=== PATIENT | female | born 1955 | race Caucasian/White ===

== ENCOUNTER 2016-10-03 02:45 | Emergency (ER) | payer MEDICAID ==
[~2016-10-03] VITALS: Ht 167.6 cm; Wt 117.9 kg
[2016-10-03 02:53] VITALS: BP 170/96
== END 2016-10-03 04:46 | disposition left against medical advice (07) ==
LOC: ER 02:51
DX: J02.9 Acute pharyngitis, unspecified (principal); K08.89 Other specified disorders of teeth and supporting structures; Z53.21 Procedure and treatment not carried out due to patient leaving prior to being seen by health care provider

== ENCOUNTER 2018-04-17 01:24 | Emergency (ER) | payer MEDICAID ==
[~2018-04-17] VITALS: Ht 167.6 cm; Wt 136.1 kg
[2018-04-17] MEDS ORDERED: cloNIDine HCL 0.1 MG TAB PO ONE (07:45)
[2018-04-17 07:55] LABS: Urine WBC None Seen /hpf (0 - 5)
[2018-04-17 08:06] LABS: Urine Bacteria NONE SEEN /hpf (None Seen); Urine Blood Negative /uL (Negative); Urine Specific Gravity 1.006 (1.001-1.035)
[2018-04-17] MEDS ORDERED: amLODIPine BESYLATE 5 MG TAB PO ONE (08:45)
[2018-04-17 09:10] VITALS: BP 152/99
== END 2018-04-17 09:11 | disposition home or self-care (01) ==
LOC: EDBD 01:24 → ER 01:29
DX: S76.012A Strain of muscle, fascia and tendon of left hip, initial encounter (principal); S76.011A Strain of muscle, fascia and tendon of right hip, initial encounter; I10 Essential (primary) hypertension; X58.XXXA Exposure to other specified factors, initial encounter; Y93.89 Activity, other specified; Y92.89 Other specified places as the place of occurrence of the external cause; Y99.8 Other external cause status
CPT/HCPCS: 73502; 81001

== ENCOUNTER 2023-11-05 01:27 | Emergency (ER) | payer MEDICAID, OTHER ==
[~2023-11-05] VITALS: Ht 162.6 cm; Wt 94.7 kg
[2023-11-05] MEDS: IOHEXOL 350 MG/ML 100ML IJ ONE (01:36)
[2023-11-05 01:40] VITALS: RESP 14
[2023-11-05 01:51] LABS: Basophils # (auto) 0 10 ^3/uL (0-0.2); Basophils % (auto) 0.2 % (0.0-2.0); Eosinophils # (auto) 0.1 10 ^3/uL (0-0.8); Eosinophils % (auto) 0.6 % (0.0-7.0); Hematocrit 48.4 % (36.0-46.0); Hemoglobin 15.8 g/dL (12.2-16.2); Lymphocytes # (auto) 3.2 10 ^3/uL (0.4-5.4); Mean Corpuscular Hemoglobin 30.9 pg (28.0-32.0); Mean Corpuscular Hgb Conc. 32.7 g/dL (32.0-36.0); Mean Corpuscular Volume 94.3 fL (80.0-100.0); Monocytes # (auto) 0.7 10 ^3/uL (0-1.3); Monocytes % (auto) 7.5 % (0.0-12.0); Neutrophils # (auto) 5.4 10 ^3/uL (1.6-8.6); Neutrophils % (auto) 57.7 % (37.0-80.0); Nucleated Red Blood Cells % 0.2 %; Red Blood Cells 5.13 10^6/uL (4.0-5.20); Red Cell Distribution Width 13.8 % (11.8-14.3); White Blood Cell 9.4 10^3/uL (4.4-10.8)
[2023-11-05 02:00] LABS: Alanine Aminotransferase 22 U/L (7-40); Albumin 4.5 g/dL (3.2-4.8); Alkaline Phosphatase 88 U/L (46-116); Anion Gap 9 (5-15); Aspartate Aminotransferase 27 U/L (13-40); BUN/Creatinine Ratio 14.9 (10.0-20.0); Blood Urea Nitrogen 11 mg/dL (9-23); Calcium 9.9 mg/dL (8.7-10.4); Carbon Dioxide 26 mmol/L (20-30); Chloride 105 mmol/L (98-107); Glucose 110 mg/dL (74-106); Potassium 3.6 mmol/L (3.5-5.1); Sodium 140 mmol/L (136-145); Total Protein 7.4 g/dL (5.7-8.2)
[2023-11-05 02:15] LABS: INR 1.01 (0.9-1.15); Partial Thromboplastin Time 29.1 SEC (24.5-34.5); Prothrombin Time 10.6 sec (9.3-11.8)
[2023-11-05] MEDS: MANNITOL 20 % (20GM/100ML) 500 ML IV ONE (02:23)
[2023-11-05] MEDS: MANNITOL 20% SOLN 100 gm/500ml 250 ML IV ONE (02:31)
[2023-11-05 02:32] VITALS: BP 146/72; RESP 13; TEMP 97.6; O2SAT 97
[2023-11-05] MEDS: levETIRAcetam 1000 mg/100ml 100 ML IV ONE (02:42)
[2023-11-05 02:44] VITALS: PULSE 89
[2023-11-05] MEDS ORDERED: levETIRAcetam 1000 mg/100ml 100 ML IV ONE (02:45)
== END 2023-11-05 03:00 | disposition short-term general hospital (02) ==
LOC: ER 01:27
DX: I62.9 Nontraumatic intracranial hemorrhage, unspecified (principal); I10 Essential (primary) hypertension
CPT/HCPCS: 36415; 70450; 71045; 80053; 84484; 85025; 85610; 85730; 93005; 96365; 96368; 99285; J1953; Q9967

== ENCOUNTER 2024-08-07 22:10 | Emergency (ER) | payer OTHER ==
[~2024-08-07] VITALS: Ht 162.6 cm; Wt 81.7 kg
--- NOTE | 2024-08-07 22:44 | ED.PDOC ---
History of Present Illness HPI Comments A 69 year old female brought in by EMS with son present, presents to the ED with a chief complaint of generalized weakness onset today. Per son, patient had an EGD done at [facility] today around 09:00. Once patient arrived home, she began experiencing generalized weakness, son took patient's BP and it was 70/40, noticed blood in phlegm and was told to go to ED if that occurred. Upon EMS arrival, BP was 103/56. Past medical history of HTN, CVA. Denies chest pain, shortness of breath, nausea, vomiting, diarrhea. No other symptoms or modifying factors present at this time. Time Seen by MD: 22:32 Reviewed Notes: Medications, Allergies Allergies: Coded Allergies: NO KNOWN ALLERGIES (Unverified , 10/03/16) Home Meds Active Scripts Sucralfate (CARAFATE) 1 Gm Tab, 1 GM OR Q6HR for 5 Days, #20 TAB Prov:CAMMY GUTHRIE MD 08/08/24 Pantoprazole Sodium Sesquihydr (Protonix) 40 Mg Tab, 40 MG PO DAILY for 5 Days, #5 TAB Prov:CAMMY GUTHRIE MD 08/08/24 Information Source: Patient, Relative (Child), Emergency Med Personnel Mode of Arrival: EMS Severity: Moderate Vital Signs Vital Signs Date Time Temp Pulse Resp B/P (MAP) Pulse Ox O2 Delivery O2 Flow Rate FiO2 08/08/24 00:00 99 16 120/75 (90) 97 08/07/24 22:50 98.3 98.3 08/07/24 22:50 Room Air* 0 21 Physical Exam General: Awake, alert and oriented. No acute distress. Skin: Skin in warm, dry and intact. Appropriate color for ethnicity. Nailbeds pink with no cyanosis. HEENT: The head is normocephalic and atraumatic. Conjunctivae are clear without exudates or hemorrhage. Sclera is non-icteric. EOM are intact. No signs of nystagmus. Eyelids are normal in appearance without swelling or lesions. Oral mucosa is pink and moist Neck: The neck is supple with normal range of motion. No JVD. Cardiac: Heart rate and rhythm are normal. No murmurs, gallops, or rubs are auscultated. Respiratory: No signs of respiratory distress. Lung sounds are clear in all lobes bilaterally without rales, ronchi, or wheezes. Abdominal: Abdomen is soft, non-tender without distention. Bowel sounds are present and normoactive in all four quadrants. Extremities: Upper and lower extremities are atraumatic in appearance without deformity or edema. Neurological: The patient is awake, alert and oriented to person, place, and time with normal speech. Speech is clear. There is no facial asymmetry. Psychiatric: Appropriate mood and affect. Good judgement and insight. No visual or auditory hallucinations. Review of Systems: REVIEW OF SYSTEMS: No fever, no chills, or fatigue HEENT: No sore throat, no earache, no congestion, no neck pain. Cardiac: No chest pain. No palpitations. Lungs: No shortness of breath, no cough. No hemoptysis GI: No nausea, upon vomiting, no diarrhea, no constipation, no abdominal pain. No blood in the stool. Positive hematemesis : No dysuria, frequency, or urgency. No hematuria. Musculoskeletal: No joint pain , no joint swelling, no extremity edema. Skin: No rash, no itching. Neuro: No headache, no dizziness, no weakness Past Medical History PAST MEDICAL HISTORY: CVA, HTN PETROLEUM SUPPLY SPECIALIST History: Denies all PETROLEUM SUPPLY SPECIALIST Hx Family History Family History: Unknown Social History Smoker: Non-Smoker Alcohol: Denies ETOH Use Drugs: Denies Drug Use Lives In: Home Was a procedure done? Was a procedure done?: No Differential Dx Considerations may include: Peptic ulcer disease, esophageal varices,Weiss's esophagus, cancer, diverticular disease, esophageal rupture/perforation, Yumiko-Henriquez tear X-Ray, Labs, Meds, VS Vital Signs Date Time Temp Pulse Resp B/P (MAP) Pulse Ox O2 Delivery O2 Flow Rate FiO2 08/08/24 00:00 99 16 120/75 (90) 97 08/07/24 22:50 98.3 120 16 87/53 (64) 96 98.3 08/07/24 22:50 120 16 96 Room Air* 0 21 08/07/24 22:34 98.1 117 14 103/56 (72) 95 Lab Test 08/08/24 00:50 08/07/24 22:50 Range/Units Sodium Level 149 H 147 H 136-145 mmol/L Potassium Level 3.6 3.8 3.5-5.1 mmol/L Chloride Level 117 H 112 H 98-107 mmol/L Carbon Dioxide Level 24 27 20-31 mmol/L Anion Gap 8 8 5-15 Blood Urea Nitrogen 46 H 49 H 9-23 mg/dL Creatinine 0.55 0.69 0.550-1.02 mg/dL Glomerular Filtration Rate Calc 98 93 >90 mL/min BUN/Creatinine Ratio 83.6 H 71.0 H 10.0-20.0 Serum Glucose 94 101 74-106 mg/dL Calcium Level 7.8 L 9.1 8.7-10.4 mg/dL White Blood Count 9.4 4.4-10.8 10^3/uL Red Blood Count 3.23 L 4.0-5.20 10^6/uL Hemoglobin 10.6 L 12.2-16.2 g/dL Hematocrit 31.3 L 36.0-46.0 % Mean Corpuscular Volume 96.9 80.0-100.0 fL Mean Corpuscular Hemoglobin 32.6 H 28.0-32.0 pg Mean Corpuscular Hemoglobin Concent 33.7 32.0-36.0 g/dL Red Cell Distribution Width 13.4 11.8-14.3 % Platelet Count 237 140-450 10^3/uL Mean Platelet Volume 8.1 6.9-10.8 fL Neutrophils (%) (Auto) 69.7 37.0-80.0 % Lymphocytes (%) (Auto) 23.5 10.0-50.0 % Monocytes (%) (Auto) 6.2 0.0-12.0 % Eosinophils (%) (Auto) 0.4 0.0-7.0 % Basophils (%) (Auto) 0.2 0.0-2.0 % Neutrophils # (Auto) 6.6 1.6-8.6 10 ^3/uL Lymphocytes # (Auto) 2.2 0.4-5.4 10 ^3/uL Monocytes # (Auto) 0.6 0-1.3 10 ^3/uL Eosinophils # (Auto) 0 0-0.8 10 ^3/uL Basophils # (Auto) 0 0-0.2 10 ^3/uL Nucleated Red Blood Cells 0.0 % Prothrombin Time 11.6 9.3-11.8 sec Prothrombin Time INR 1.10 0.9-1.15 Activated Partial Thromboplast Time 22.8 L 24.5-34.5 SEC Total Bilirubin 0.5 0.2-1.0 mg/dL Aspartate Amino Transferase (AST) 15 13-40 U/L Alanine Aminotransferase (ALT) 17 7-40 U/L Alkaline Phosphatase 64 46-116 U/L Total Protein 5.6 L 5.7-8.2 g/dL Albumin 3.6 3.2-4.8 g/dL Current Medications Medications (Trade) Dose Ordered Sig/Swapnil Route Start Time Stop Time Status Last Admin Sodium Chloride 1,000 ml @ 1,000 mls/hr Q1H ONCE IV 08/07/24 23:45 08/08/24 00:44 DC 08/07/24 23:40 [place] [address] Ph: [phone] DIAGNOSTIC IMAGING Diagnostic Imaging Report : [id number] Signed PATIENT: RICHARDSON RAM ACCT: [id number] UNIT: [id number] : 1955 LOC: ER ROOM / BED: / AGE / SEX: 69 / F ADM STATUS: REG ER SERVICE 35 ORDERING PHYSICIAN: CAMMY GUTHRIE MD PROCEDURE(s): ABPL - CT AB PEL WO CON-NO ORAL OR IV REASON: Hematemesis ORDER NUMBER(s): [id number], ACCESSION NUMBER(s): [id number] Exam: CT CT AB PEL WO CON-NO ORAL OR IV History: Hematemesis Comparison Study: None Technique: Multidetector spiral CT of the abdomen was performed from lung bases to pubic symphysis. Imaging was performed without IV contrast. Axial, coronal and sagittal multiplanar reformats were obtained from the axial data set by the technologist. Radiation Dose : 1. Abdomen/Pelvis: CTDIvol 20.3 mGy, DLP 1135.55 mGy*cm. Findings: Evaluation of solid organs is limited due to lack of intravenous contrast use. Lung Bases: Right basilar ground-glass opacities may reflect pneumonia. Liver: The liver is normal in size. No focal lesions. Gallbladder and Biliary Tree: Unremarkable Spleen: Unremarkable Pancreas: The pancreas is grossly normal in appearance. Adrenal Glands: Unremarkable Kidneys: 2 mm nonobstructing calculi in the midpole of the left kidney without hydronephrosis. Unremarkable right kidney. Bladder: Obscured by streak artifacts Bowel: The stomach is grossly normal in appearance. Small bowel and colon are no rmal in caliber and distribution. The appendix is not visualized; however, no secondary findings of acute appendicitis identified. Ascites: Absent Lymphadenopathy: No mesenteric, retroperitoneal or periportal lymphadenopathy. Abdominal Wall and Mesentery: Unremarkable. Vasculature: The visualized abdominal aorta is normal in size and caliber. Evaluation of abdominal and pelvic vessels is limited due to lack of intravenous contrast. Pelvic Organs: Unremarkable Musculoskeletal: Bilateral hip arthroplasties with extensive surrounding streak artifact. Severe degenerative changes throughout the thoracic spine. IMPRESSION: 1. Ground-glass opacities in the right lower lobe may reflect pneumonia. 2. 2 mm nonobstructing calculi in the midpole of the left kidney without hydronephrosis. 3. No evidence of bowel obstruction. Radiation optimization: All CT scans at this facility use at least one of these dose optimization techniques: automated exposure control mA and/or kV adjustment per patient size (includes targeted exams where dose is matched to clinical indication) or iterative reconstruction. ATED BY: LONNIE DAMICO MD DICTATED DATE/TIME: 08/07/242342 SIGNED BY: LONNIE DAMICO MD SIGNED DATE/TIME: 08/07/242342 CC: [place] [address] Ph: [phone] DIAGNOSTIC IMAGING Diagnostic Imaging Report : [id number] Signed PATIENT: RICHARDSON RAM ACCT: [id number] UNIT: [id number] : 1955 LOC: ER ROOM / BED: / AGE / SEX: 69 / F ADM STATUS: REG ER SERVICE 35 ORDERING PHYSICIAN: CAMMY GUTHRIE MD PROCEDURE(s): CXR1 - CHEST XRAY 1 VIEW REASON: Hematemesis status post EGD ORDER NUMBER(s): [id number], ACCESSION NUMBER(s): [id number] CHEST RADIOGRAPH Indication: Hematemesis status post EGD Technique: Single frontal view of the chest was obtained COMPARISON: XY CHEST PORTABLE on DOS: 11/05/23 FINDINGS: Lines and Tubes: None Lungs: Vague right basilar opacity may reflect mild pneumonia. Pleura: No effusion. No pneumothorax. Cardiomediastinal contours: Unremarkable Bones: Unremarkable IMPRESSION: 1. Vague right basilar opacity may reflect mild pneumonia. ATED BY: LONNIE DAMICO MD DICTATED DATE/TIME: 08/07/242345 SIGNED BY: LONNIE DAMICO MD SIGNED DATE/TIME: 08/07/242345 CC: Time of 1ST Reevaluation: 23:02 Reevaluation 1ST: Unchanged Patient Education/Counseling: Diagnosis, Treatment, Prognosis Family Education/Counseling: Diagnosis, Treatment, Prognosis Departure 1 Departure Time of Disposition: 00:58 Impression: Primary Impression: Hematemesis Additional Impressions: Hypernatremia Low blood pressure reading Disposition: HOME / SELF CARE / HOMELESS Condition: Stable Additional Instructions: ED DISCHARGE INSTRUCTIONS Instructions: Please read all instructions provided in this packet carefully. Although you have been discharged from the Emergency Department, this does not mean that you have a "clean bill of health". No definitive diagnosis for your symptoms has been made today. It is possible that you are in the process of developing a serious illness. This is why you must return to the ED without fail if any new or worsening symptoms (especially if your symptoms include more vom iting of blood, bleeding elsewhere, dizziness, lightheadedness, weakness, chest pain, trouble breathing, abdominal pain, fever, headache, confusion, trouble seeing, or trouble walking) Follow up with your honey grader and blender promptly. Your sodium level was high today. Be sure to drink plenty of water. You will need to have this rechecked with the primary care provider. It is also very important that you see a primary care doctor within the next 1- 3 days to follow up. If you are unable to get an appointment, return to the ED for re-evaluation. Discharge Instructions for Hypernatremia You have been diagnosed with hypernatremia. This means you have too much sodium (salt) in your blood. It can be caused by eating too much salt. But it's more often due to fluid loss. Loss of too much fluid can occur if the kidneys excrete too much urine. Fluid loss can also be caused by extreme sweating. This can happen during hot weather or exercise. It can be caused by diarrhea or vomiting. It can also be caused if you don't drink enough water. If not treated right away, it can cause a seizure or a loss of consciousness. It can also lead to d eath. Symptoms include: Extreme thirst Fatigue Confusion Low blood pressure Diet changes Limit all foods that are high in sodium, including: Canned soups Canned beans Frozen dinners Commercially prepared tomato sauce and spaghetti sauce Pizza Potato and corn chips Salted pretzels and crackers Olives Pickles Sauerkraut Soy sauce Cottage, French, or feta cheeses Canned chili and stew Lunch meats Processed meats, such as hot dogs and salami Instant hot cereal Quick breads made with baking soda or baking powder, including pancakes, biscuits, and waffles Packaged dessert mixes Other home care Drink more fluids as advised. Have your sodium levels checked as often as advised by your provider. This is very important if you are taking a diuretic. This is a medicine that helps flush water from the body. Replace your body fluids after vomiting or diarrhea. Ask your provider for the best way to do this. Tell your provider about all medicines and dietary supplements you take. These include both prescribed and [id number] medicines. Some of these can raise sodium levels. Take all medicine as directed. Follow-up care Follow up with your healthcare provider, or as advised. They will need to watch your condition closely. You may need extra care if you have a condition that causes your hypernatremia. When to call your healthcare provider Call your provider right away if any of these occur: Muscle twitching, spasms, or cramps Fatigue Confusion Seizures Loss of consciousness or fainting Dizziness or lightheadedness Gastrointestinal Bleeding: Care Instructions Overview The digestive or gastrointestinal tract goes from the mouth to the anus. It is often called the GI tract. Bleeding can happen anywhere in the GI tract. It may be caused by an ulcer, an infection, or cancer. It may also be caused by medicines such as aspirin or ibuprofen. Light bleeding may not cause any symptoms at first. But if you continue to bleed for a while, you may feel weak or tired. Sudden, heavy bleeding means you need to see a doctor right away. The doctor may do some tests to find the cause of your bleeding. Treatment is needed to control the bleeding and treat the cause of the bleeding. Follow-up care is a lemus part of your treatment and safety. Be sure to make and go to all appointments, and call your doctor if you are having problems. It's also a good idea to know your test results and keep a list of the medicines you take. How can you care for yourself at home? Be safe with medicines. Take your medicines exactly as prescribed. Call your doctor if you think you are having a problem with your medicine. You will get more details on the specific medicines your doctor prescribes. Do not take blood thinners, aspirin, or other anti-inflammatory medicines, such as naproxen (Aleve) or ibuprofen (Advil, Motrin), without talking to your doctor first. Do not drink alcohol. The bleeding may increase your risk for a low red blood cell count (anemia). When should you call for help? Call 911 anytime you think you may need emergency care. For example, call if: You have sudden, severe belly pain. You vomit blood or what looks like coffee grounds. You passed out (lost consciousness). Your stools are maroon or very bloody. Call your doctor now or seek immediate medical care if: You are dizzy or lightheaded, or you feel like you may faint. Your stools are black and look like tar, or they have streaks of blood. You have belly pain. You vomit or have nausea. You have trouble swallowing, or it hurts when you swallow. Watch closely for changes in your health, and be sure to contact your doctor if: You do not get better as expected. Credits for Gastrointestinal Bleeding: Care Instructions Current as of: June 22, 2023 Author: [email or web address] Staff Clinical Review Board All [employer] education is reviewed by a team that includes physicians, nurses, advanced practitioners, registered dieticians, and other healthcare professionals. e-Prescriptions Sucralfate (CARAFATE) 1 Gm Tab 1 GM OR Q6HR for 5 Days, #20 TAB Prov: CAMMY GUTHRIE MD 08/08/24 Pantoprazole Sodium Sesquihydr (Protonix) 40 Mg Tab 40 MG PO DAILY for 5 Days, #5 TAB Prov: CAMMY GUTHRIE MD 08/08/24 Comments 69-year-old female presents with single episode of hematemesis after undergoing EGD with dilatation today. Patient was hypotensive on arrival. Blood pressure improved after IV fluids. No further GI bleeding. Patient felt stable for discharge home to follow up with the primary care provider and GI specialist. Number & Complexity of Problems Addressed 1 acute or chronic illness that poses a threat to life or bodily function: GI bleed, hypotension Extensive evaluation was performed to identify or rule out: Active GI bleed, esophageal rupture, severe blood loss, shock, Tests reviewed: Labs imaging Documents reviewed: [] Independent historian: Patient's son at bedside Independent interpretation of tests: Agree with radiologist's interpretation of CT scan and chest x-ray Discussion of management or test interpretation with external physician/other qualified health ocular care technologist: N/A Considered whether the patient would need hospital admission for repeat EGD however bleeding has improved at this time, patient is pain-free, she would like to go home and follow up as an outpatient Critical Care Note Critical Care Time?: No Stability Stability form required: No I personally scribed for CAMMY GUTHRIE MD ([email or web address]) on 08/07/24 at 22:44. Electronically submitted by Christina Hein ([email or web address]). I personally scribed for CAMMY GUTHRIE MD ([email or web address]) on 08/08/24 at 00:26. Electronically submitted by Christina Hein ([email or web address]). CAMMY GUTHRIE MD Aug 07, 2024 22:44
[2024-08-07 22:50] VITALS: PULSE 120; RESP 16; O2SAT 96
[2024-08-07 23:10] LABS: Basophils # (auto) 0 10 ^3/uL (0-0.2); Basophils % (auto) 0.2 % (0.0-2.0); Eosinophils # (auto) 0 10 ^3/uL (0-0.8); Eosinophils % (auto) 0.4 % (0.0-7.0); Hematocrit 31.3 % (36.0-46.0); Hemoglobin 10.6 g/dL (12.2-16.2); Lymphocytes # (auto) 2.2 10 ^3/uL (0.4-5.4); Lymphocytes % (auto) 23.5 % (10.0-50.0); Mean Corpuscular Hemoglobin 32.6 pg (28.0-32.0); Mean Corpuscular Hgb Conc. 33.7 g/dL (32.0-36.0); Mean Corpuscular Volume 96.9 fL (80.0-100.0); Monocytes # (auto) 0.6 10 ^3/uL (0-1.3); Monocytes % (auto) 6.2 % (0.0-12.0); Neutrophils # (auto) 6.6 10 ^3/uL (1.6-8.6); Neutrophils % (auto) 69.7 % (37.0-80.0); Platelet Count (auto) 237 10^3/uL (140-450); Red Blood Cells 3.23 10^6/uL (4.0-5.20); Red Cell Distribution Width 13.4 % (11.8-14.3); White Blood Cell 9.4 10^3/uL (4.4-10.8)
[2024-08-07 23:27] LABS: Alanine Aminotransferase 17 U/L (7-40); Albumin 3.6 g/dL (3.2-4.8); Alkaline Phosphatase 64 U/L (46-116); Anion Gap 8 (5-15); Aspartate Aminotransferase 15 U/L (13-40); Bilirubin, Total 0.5 mg/dL (0.2-1.0); Calcium 9.1 mg/dL (8.7-10.4); Carbon Dioxide 27 mmol/L (20-31); Glucose 101 mg/dL (74-106); Potassium 3.8 mmol/L (3.5-5.1)
[2024-08-07 23:28] LABS: INR 1.1 (0.9-1.15); Partial Thromboplastin Time 22.8 SEC (24.5-34.5); Prothrombin Time 11.6 sec (9.3-11.8)
[2024-08-07 23:33] LABS: Blood Urea Nitrogen 49 mg/dL (9-23); Chloride 112 mmol/L (98-107); Sodium 147 mmol/L (136-145); Total Protein 5.6 g/dL (5.7-8.2)
[2024-08-07] MEDS: SODIUM CHLORIDE 0.9% 1,000 ML IV ONE (23:40)
--- NOTE | 2024-08-07 23:46 | DVH ---
Exam: CT CT AB PEL WO CON-NO ORAL OR IV History: Hematemesis Comparison Study: None Technique: Multidetector spiral CT of the abdomen was performed from lung bases to pubic symphysis. Imaging was performed without IV contrast. Axial, coronal and sagittal multiplanar reformats were ob tained from the axial data set by the technologist. Radiation Dose : 1. Abdomen/Pelvis: CTDIvol 20.3 mGy, DLP 1135.55 mGy*cm. Findings: Evaluation of solid organs is limited due to lack of intravenous contrast use. Lung Bases: Right basilar ground-glass opacities may reflect pneumonia. Liver: The liver is normal in size. No focal lesions. Gallbladder and Biliary Tree: Unremarkable Spleen: Unremarkable Pancreas: The pancreas is grossly normal in appearance. Adrenal Glands: Unremarkable Kidneys: 2 mm nonobstructing calculi in the midpole of the left kidney without hydronephrosis. Unrema rkable right kidney. Bladder: Obscured by streak artifacts Bowel: The stomach is grossly normal in appearance. Small bowel and colon are normal in caliber and d istribution. The appendix is not visualized; however, no secondary findings of acute appendicitis id entified. Ascites: Absent Lymphadenopathy: No mesenteric, retroperitoneal or periportal lymphadenopathy. Abdominal Wall and Mesentery: Unremarkable. Vasculature: The visualized abdominal aorta is normal in size and caliber. Evaluation of abdominal a nd pelvic vessels is limited due to lack of intravenous contrast. Pelvic Organs: Unremarkable Musculoskeletal: Bilateral hip arthroplasties with extensive surrounding streak artifact. Severe dege nerative changes throughout the thoracic spine. IMPRESSION: 1. Ground-glass opacities in the right lower lobe may reflect pneumonia. 2. 2 mm nonobstructing calculi in the midpole of the left kidney without hydronephrosis. 3. No evidence of bowel obstruction. Radiation optimization: All CT scans at this facility use at least one of these dose optimization te chniques: automated exposure control mA and/or kV adjustment per patient size (includes targeted exa ms where dose is matched to clinical indication) or iterative reconstruction.
--- NOTE | 2024-08-07 23:48 | DVH ---
CHEST RADIOGRAPH Indication: Hematemesis status post EGD Technique: Single frontal view of the chest was obtained COMPARISON: XY CHEST PORTABLE on DOS: 11/05/23 FINDINGS: Lines and Tubes: None Lungs: Vague right basilar opacity may reflect mild pneumonia. Pleura: No effusion. No pneumothorax. Cardiomediastinal contours: Unremarkable Bones: Unremarkable IMPRESSION: 1. Vague right basilar opacity may reflect mild pneumonia.
[2024-08-08] MEDS ORDERED: PANT40TA2 PO (01:03)
[2024-08-08] MEDS ORDERED: SUCR1TAB31 OR (01:03)
[2024-08-08 01:10] LABS: Potassium 3.6 mmol/L (3.5-5.1)
[2024-08-08 01:11] LABS: Anion Gap 8 (5-15); Carbon Dioxide 24 mmol/L (20-31)
[2024-08-08 01:16] LABS: BUN/Creatinine Ratio 83.6 (10.0-20.0); Glucose 94 mg/dL (74-106)
[2024-08-08 01:17] LABS: Sodium 149 mmol/L (136-145)
[2024-08-08 01:18] LABS: Blood Urea Nitrogen 46 mg/dL (9-23); Calcium 7.8 mg/dL (8.7-10.4); Chloride 117 mmol/L (98-107)
[2024-08-08 01:35] VITALS: BP 116/73; PULSE 97; RESP 17; TEMP 98; O2SAT 97
== END 2024-08-08 01:35 | disposition home or self-care (01) ==
LOC: ER 22:10 → EDBD 22:10 → ER 08-08 01:35
DX: K92.0 Hematemesis (principal); E87.0 Hyperosmolality and hypernatremia; R03.1 Nonspecific low blood-pressure reading; I10 Essential (primary) hypertension; Z79.899 Other long term (current) drug therapy; Z86.73 Personal history of transient ischemic attack (TIA), and cerebral infarction without residual deficits
CPT/HCPCS: 36415; 71045; 74176; 80048; 80053; 85025; 85610; 85730; 96360; 99284; J7030